=== PATIENT | female | born 1970 | race Caucasian/White ===

== ENCOUNTER → 2016-07-18 | Outpatient (CLI) | payer OTHER ==
[~2016-07-18] MED LIST: ANAPROX DS550 MG PO; AUGMENTIN 875 M1 TAB PO; CIPRODEX 0.3%-7.5 ML OT; CLARITIN10 MG PO; COMBIVENT1 ARO IH; DAYPRO600 M1 PO; DICYCLOMINE HCL10 MG PO; FLEXERIL5 MG PO; FLUVOXAMINE MA100 MG PO; MEDROL DOSEPAK4 MG PO; Motrin,Rufen800 MG PO; NORFLEX100 MG PO; PREDNISONE20 MG PO; PRILOSEC20 M2 PO; RESTORIL15 MG PO; ROBAXIN750 MG PO; SOMA PO; TRAMADOL HCL50 MG PO; VIBRAMYCIN100 MG PO; VICODIN ES 7501 TAB PO; Wellbutrin Sr100 MG PO; XANAX1 MG PO; ZITHROMAX Z PA250 MG PO; ZOLOFT25 MG PO
== END | disposition home or self-care (01) ==
LOC: US 02:56
DX: R59.0 Localized enlarged lymph nodes (principal)

== ENCOUNTER → 2016-10-23 | Outpatient (CLI) | payer OTHER ==
[~2016-10-23] MED LIST changes: +ALLEGRA-D 60 MG1 TE1 PO; +PEPCID20 MG PO
== END | disposition home or self-care (01) ==
LOC: US 05:57
DX: K76.0 Fatty (change of) liver, not elsewhere classified (principal); R10.84 Generalized abdominal pain

== ENCOUNTER → 2016-11-01 | Day surgery (SDC) | payer OTHER ==
[~2016-11-01] VITALS: Ht 160 cm; Wt 65.8 kg
[2016-11-01 08:59] VITALS: BP 109/71
[2016-11-01 09:24] VITALS: BP 111/70
[2016-11-01 09:39] VITALS: BP 113/77
[2016-11-01 09:54] VITALS: BP 109/69
== END | disposition home or self-care (01) ==
LOC: SDC 10-27 09:30
DX: K29.50 Unspecified chronic gastritis without bleeding (principal); K63.5 Polyp of colon; R19.4 Change in bowel habit; K21.9 Gastro-esophageal reflux disease without esophagitis; F41.9 Anxiety disorder, unspecified; F32.9 Major depressive disorder, single episode, unspecified; F17.210 Nicotine dependence, cigarettes, uncomplicated; Z82.49 Family history of ischemic heart disease and other diseases of the circulatory system; Z88.8 Allergy status to other drugs, medicaments and biological substances

== ENCOUNTER 2016-12-14 12:13 | Emergency (ER) | payer OTHER ==
[~2016-12-14] VITALS: Ht 160 cm; Wt 66.7 kg
[2016-12-14 12:20] VITALS: BP 109/71
[2016-12-14 14:31] LABS: BASO % 0.5 % (0.0-1.0); EOS # 0.1 10*3/uL (0.0-0.4); EOS % 2.2 % (1.0-4.0); HEMATOCRIT 43.4 % (37.0-47.0); HEMOGLOBIN 14.3 g/dl (12.0-16.0); LYMPH % 16.4 % (27.0-41.0); MEAN CELL VOLUME 91.8 fl (81.0-99.0); MEAN CORPUSCULAR HGB 30.2 pg (27.0-31.0); MEAN CORPUSCULAR HGB CONC 32.9 g/dl (33.0-37.0); MEAN PLATELET VOLUME 9.5 fl (9.6-12.3); MONO # 0.4 10*3/uL (0.1-1.0); MONO % 7.3 % (3.0-9.0); NEUT # 4.4 10*3/uL (2.3-7.9); NEUT % 73.3 % (47.0-73.0); PLATELET COUNT AUTOMATED 195 10*3/uL (130-400); RED BLOOD COUNT 4.73 10*6/uL (4.10-5.10); RED CELL DISTRI WIDTH 13.3 % (0-14.5)
[2016-12-14] MEDS ORDERED: Motrin,Rufen800 MG PO (14:57)
== END 2016-12-14 18:28 | disposition home or self-care (01) ==
LOC: ED 12:13
PROVIDERS: Internal Medicine
DX: N64.4 Mastodynia (principal); F17.200 Nicotine dependence, unspecified, uncomplicated; Z79.899 Other long term (current) drug therapy

== ENCOUNTER → 2016-12-20 | Outpatient (CLI) | payer OTHER | END | disposition home or self-care (01) | LOC: MAMMO 03:00 | DX: N63 Unspecified lump in breast (principal) ==

== ENCOUNTER 2017-02-28 21:14 | Inpatient (IN) | payer OTHER ==
[~2017-02-28] VITALS: Ht 160 cm; Wt 70.8 kg
[2017-02-28] VITALS (8 sets, daily range): BP systolic 110–142; BP diastolic 68–84
--- NOTE | ~2017-02-28 | ST ---
[place], [place] EXERCISE STRESS TEST REPORT NAME: WADE HAMEED UNIT #: [id number] ROOM: [facility] DOCTOR: ANA SERRANO [facility],[place] BIRTHDATE: [birth year] DOS: 02/28/2017 The patient received Lexiscan 0.4 mg over 10 seconds. Heart rate is 105. Ischemic changes in the inferior and lateral leads with chest pain and ST depression appears to be more than 1 mm. An underlying myocardial ischemia in the inferior leads may be considered. Myocardial perfusion scan to follow. No complications noted. The patient has associated symptoms. SHARAN PEREZ MD CM:STRESS:EXERCISE STRESS TEST REPORT [id number] KIARRA COOK MD [facility]
--- NOTE | ~2017-02-28 | EKG ---
[place], [place] ELECTROCARDIOGRAM REPORT NAME: WADE HAMEED UNIT #: [id number] ROOM: [facility] DOCTOR: ANA SERRANO [facility],[place] BIRTHDATE: [birth year] DOS: 02/28/2017 ELECTROCARDIOGRAM REPORT TIME: 2121 HOURS. CONCLUSION: 1. Sinus rhythm. 2. Poor R-wave progression. 3. Nonspecific ST changes. No acute changes noted. SHARAN PEREZ MD CM:EKGRPT:ELECTROCARDIOGRAM REPORT 1320 1335 SHARAN PEREZ MD [facility]
--- NOTE | ~2017-02-28 | EKG ---
[place], [place] ELECTROCARDIOGRAM REPORT NAME: WADE HAMEED UNIT #: [id number] ROOM: [facility] DOCTOR: ANA SERRANO [facility] BIRTHDATE: [birth year] DOS: 02/28/2017 ELECTROCARDIOGRAM REPORT TIME: 2149 HOURS. CONCLUSION: 1. Sinus rhythm. 2. Poor R-wave progression. 3. Nonspecific ST changes. No acute changes noted. SHARAN PEREZ MD CM:EKGRPT:ELECTROCARDIOGRAM REPORT 1320 1338 SHARAN PEREZ MD [facility]
--- NOTE | ~2017-02-28 | CON ---
[place], [place] REPORT OF CONSULTATION NAME: WADE HAMEED UNIT #: [id number] ROOM: 505 DOCTOR: ANA SERRANO [facility],[place] BIRTHDATE: [birth year] DOS: 03/01/2017 HISTORY OF PRESENT ILLNESS: I talked to the patient, explained and discussed at length, and the patient came in with history of pericardial chest pain radiating to the neck and arms and the patient's symptoms are progressing for the last several days. The patient has strong family of heart disease. Mother with heart disease. Several aunts and uncles and other relatives have history of heart disease below the age of 50s and 60s. The patient is still smoking more than a pack a day for quite sometime, history of hypertension, and the patient's mother has history of diabetes. The patient is not established diabetic. No syncope or presyncope and no orthopnea. PHYSICAL EXAMINATION: GENERAL: Stable, alert, not in any acute distress. VITAL SIGNS: Blood pressure 102/62-112/76, heart rate is 70. SKIN: Warm, not diaphoretic. NECK: Supple. No jugular venous distention noted. No carotid bruits were heard. LUNGS: No rales heard. HEART: S1, S2 regular. No gallops. ABDOMEN: Soft. Non tender. EXTREMITIES: Peripheral pulses, good. DIAGNOSTIC STUDIES: EKG: Sinus rhythm. No acute changes noted. Stress electrocardiogram: Abnormal indicating myocardial ischemia in the inferior leads. Myocardial perfusion scan to follow. I will review the echocardiogram. SHARAN PEREZ MD CM:CONSTR:REPORT OF CONSULTATION 1338 03/05/17 0709 interface
--- NOTE | 2017-02-28 21:18 | NUR ---
EKG DONE AT BEDSIDE BY RN AND PASSEED ON TO MD.
[2017-02-28 21:37] LABS: BASO % 0.2 % (0.0-1.0); EOS % 0.2 % (1.0-4.0); HEMATOCRIT 37.5 % (37.0-47.0); HEMOGLOBIN 12.8 g/dl (12.0-16.0); LYMPH # 1.1 10*3/uL (1.3-4.4); LYMPH % 12.3 % (27.0-41.0); MEAN CELL VOLUME 88.2 fl (81.0-99.0); MEAN CORPUSCULAR HGB 30.1 pg (27.0-31.0); MEAN CORPUSCULAR HGB CONC 34.1 g/dl (33.0-37.0); MEAN PLATELET VOLUME 9.9 fl (9.6-12.3); MONO # 0.7 10*3/uL (0.1-1.0); MONO % 7.5 % (3.0-9.0); NEUT # 6.8 10*3/uL (2.3-7.9); NEUT % 79.5 % (47.0-73.0); PLATELET COUNT AUTOMATED 230 10*3/uL (130-400); RED BLOOD COUNT 4.25 10*6/uL (4.10-5.10); RED CELL DISTRI WIDTH 13.2 % (0-14.5); WHITE BLOOD COUNT 8.6 10*3/uL (4.8-10.8)
[2017-02-28 21:52] LABS: ACT PARTIAL THROMBO TIME 23.5 SECONDS (20.8-31.5)
[2017-02-28 21:55] LABS: ALBUMIN 4.3 gm/dl (3.1-4.5); ALKALINE PHOSPHATASE 82 U/L (45-117); BUN 18 mg/dl (7-24); CHLORIDE 102 mmol/L (98-107); CREATININE 1.04 mg/dL (0.55-1.02); POTASSIUM 4.2 mmol/L (3.5-5.1); SGOT/AST 23 IU/L (3-35); SGPT/ALT 33 U/L (12-78); SODIUM 139 mmol/L (136-145); TOTAL PROTEIN 7.9 gm/dL (6.4-8.2)
[2017-02-28 21:57] LABS: TROPONIN I < 0.015 ng/ml (<0.045)
--- NOTE | 2017-02-28 22:34 | NUR ---
PATIENT REPORTS SOME RELIEF FROM HER CHEST PAIN BUT REPORTS IT IS STILL PRESENT, PATIENT REPORTS THAT HER ANXIETY HAS EASED SOME BUT SHE HAS A REALLY BAD HEADACHE AT THIS TIME. DR. MENDENHALL NOTIFIED.
--- NOTE | 2017-02-28 23:10 | NUR ---
A 46, admitted to 5E, under the services of KIARAR Gore DO with a diagnosis of CHEST PAIN OF UNCERTAIN ETIOLOGY. Chief complaint is CHEST PAIN\. Patient arrived via bed from ER. Monitor applied. Initial assessment completed. Vital signs taken and recorded. KIARRA GORE DO notified of admission to the unit. Orders received. See assessment for past medical history, medications and allergies. Patient and/or family oriented to unit. visitation policy reviewed. Clothing/patient valuable form completed. SUSAN CONNER
--- NOTE | 2017-02-28 23:45 | NUR ---
DR. FOSTER NOTIFIED OF PATIENT'S MED REQ BEING UP TO DATE.
--- NOTE | 2017-02-28 23:57 | NUR ---
PATIENT MEDICATED WITH MOTRIN 800MG AND TYLENOL 650MG FOR COMPLAINTS OF A HEADACHE. DR. MARTINEZ IN TO SEE PATIENT. WILL CONTINUE TO MONITOR. CALL LIGHT IN REACH.
--- NOTE | 2017-03-01 01:30 | NUR ---
MOTRIN AND TYLENOL EFFECTIVE. PATIENT STATED HEADACHE IS GONE. CALL LIGHT IN REACH.
[2017-03-01 03:35] LABS: BASO % 0.3 % (0.0-1.0); EOS % 0.6 % (1.0-4.0); HEMATOCRIT 33.2 % (37.0-47.0); HEMOGLOBIN 11.2 g/dl (12.0-16.0); LYMPH # 1.2 10*3/uL (1.3-4.4); LYMPH % 18.4 % (27.0-41.0); MEAN CORPUSCULAR HGB CONC 33.7 g/dl (33.0-37.0); MEAN PLATELET VOLUME 9.1 fl (9.6-12.3); MONO # 0.5 10*3/uL (0.1-1.0); MONO % 7.8 % (3.0-9.0); NEUT # 4.8 10*3/uL (2.3-7.9); NEUT % 72.3 % (47.0-73.0); PLATELET COUNT AUTOMATED 182 10*3/uL (130-400); RED BLOOD COUNT 3.73 10*6/uL (4.10-5.10); RED CELL DISTRI WIDTH 13.2 % (0-14.5); WHITE BLOOD COUNT 6.6 10*3/uL (4.8-10.8)
--- NOTE | 2017-03-01 03:42 | NUR ---
DR. PEREZ NOTIFIED OF CONSULT WITH NEW ORDERS NOTED.
[2017-03-01 03:51] LABS: BUN 21 mg/dl (7-24); CHLORIDE 106 mmol/L (98-107); CREATININE 0.94 mg/dL (0.55-1.02); HDL CHOLESTEROL 87 mg/dl (40-60); PHOSPHOROUS 3.6 mg/dL (2.5-4.9); POTASSIUM 3.6 mmol/L (3.5-5.1); SODIUM 139 mmol/L (136-145); TRIGLYCERIDES 29 mg/dl (<150); VLDL CHOLESTEROL 6 mg/dL (6-40)
[2017-03-01 03:52] LABS: CHOLESTEROL 169 mg/dL (<200); LDL CHOLESTEROL 76 mg/dL (9-159)
[2017-03-01 03:58] LABS: THYROID STIM HORMONE (HS) 0.717 uIU/ml (0.358-4.75)
[2017-03-01 04:49] LABS: CKMB 1.1 ng/ml (0.5-3.6)
[2017-03-01 07:41] LABS: VITAMIN D, 25-HYDROXY 42.8 ng/mL (30-100)
[2017-03-01 08:00] VITALS: BP 120/68
[2017-03-01] MEDS ORDERED: CLINDAMYCIN HC300 MG PO (08:20)
--- NOTE | 2017-03-01 09:00 | NUR ---
Medical Assistant Instructor in to talk to patient. Patient states lives at home with boyfriend. There are few steps in the home. Physician: santino garcia [facility]: [facility] Home health services: none Patient's level of ADLs: INDEPENDENT Patient has working utilities: all working DME: none Follow-up physician's appointment after d/c: will be made by hospitalist nurse director upon discharge Does patient want to access PORTAL?: no Discharge plan discussed with patient, patient lives at home, was in this area visiting her children when she got sick, she is independent in adls and ambulation, patient states she will be returning home when able and denies any home needs. AMIRA MAGDALENO
[2017-03-01 12:11] LABS: CKMB 0.9 ng/ml (0.5-3.6)
--- NOTE | 2017-03-01 13:15 | NUR ---
INFORMED CONSENT OBTAINED FOR LEXISCAN NUCLEAR STRESS TEST WITH DR. PEREZ. RESTING EKG NSR WITH A RESTING HR OF 70 AND BP OF 112/76. LUNGS CLEAR WITH SPO2 OF 99% ON ROOM AIR. PT COMPLETED A 1:00 LEXISCAN PROTOCOL RECEIVING LEXISCAN 0.4 MG IV OVER 10 SECONDS. HAD A PEAK HR OF 105 WITH BP OF 102/62. DID C/O "CHEST HEAVINESS" THAT SUBSIDED IN RECOVERY. DEVELOPED NONDIAGNOSTIC ST DEPRESSION IN LEAD II,III, AND AVF. LAST RECOVERY HR OF 96 WITH BP OF 102/52. AWAITING SCANNING IN STABLE CONDITION.
[2017-03-01 16:00] VITALS: BP 112/68
--- NOTE | 2017-03-01 18:49 | NUR ---
CALLED DR MYERS ASKIMG FOR SOMETHING FOR PAIN. DR MYERS WILL PUT SOMETHING IN FOR PATIENT
[2017-03-01 20:00] VITALS: BP 117/66
--- NOTE | 2017-03-01 21:57 | NUR ---
PATIENT MEDICATED WITH XANAX, TORDOL AND RESTORIL PER PRN ORDER ANABELA C/O PAIN,ANXIETY, AND INABILITY TO SLEEP . SEE EMAR. REINFORCED USE OF CALL LIGHT
[2017-03-02] VITALS: BP 102/67
[2017-03-02 08:00] VITALS: BP 92/66
--- NOTE | 2017-03-02 08:52 | NUR ---
case management visits with patient, patient denies any home needs at this time
--- NOTE | 2017-03-02 09:09 | NUR ---
PT EXTREMELY AGITATED, BEHAVIOR INAPPROPRIATE, CURSING. EMOTIONAL SUPPORT PROVIDED. XANAX 1 MG GIVEN FOR C/O ANXIETY. PT STATES AT THIS TIME THAT HER "MEDS ARE NOT RIGHT". UPON FURTHER INSPECTION I NOTICED THAT SHE HAD NOT BEEN RECIEVING HER SOMA AND SHE HAD ONLY BEEN RECIEVEING 100MG FLUOXAMINE FOR HER "BIPOLAR DISORDER AND HER OCD". PT DOES APPEAR DISHEVELED AND TEARFUL. RAPID SPEECH ,ALMOST TO THE POINT YOU CAN'T UNDERSTAND HER.EMOTIONAL SUPPORT PROVIDED. PT APPEARED TO CALM DOWN A BIT. I EXPLAINED TO HER WE WOULD FIGURE THIS OUT. VOICES NO OTHER NEEDS AT THIS TIME. CALL LIGHT IN REACH. PT FATHER AT [facility].
--- NOTE | 2017-03-02 09:31 | NUR ---
SPOKE TO BACK FACER TO DR Selma PEREZ, DR PEREZ IN DISPOSED AT THE MOMENT AND WILL RETURN MY CALL. DR Rosalina MORELAND REQUESTED I SPEAK TO HIM REGARDING ECHO NOT DONE AND TO ASK IF HE SEEN ANTONYAN. WILL F/U IF NO CALL BACK RECIEVED IN 1 HOUR.
--- NOTE | 2017-03-02 09:36 | NUR ---
MADE F/U APPT FOR PT AT [facility] 03/12/17 @ 1:[address] Selma PEREZ.
--- NOTE | 2017-03-02 10:01 | NUR ---
SPOKE TO DR Selma PEREZ AND HE LEFT CELL NUMBER FOR DR MORELAND TO SPEAK TO HIM.
[2017-03-02] MEDS ORDERED: LEVAQUIN500 M2 PO (10:08)
[2017-03-02] MEDS ORDERED: PREDNISONE10 MG PO (10:08)
--- NOTE | 2017-03-02 11:21 | NUR ---
Discharge instructions reviewed with patient/family. Patient receptive and verbalizes understanding. Follow-up care arranged. Written instructions given to patient/family.TELEMETRY ACCOUNTED FOR. ESTEFANY ECKERT
== END 2017-03-02 11:21 | disposition home or self-care (01) | DRG 880 ==
LOC: ED 21:14 → EDHOLD 22:38 → 5E 22:38
PROVIDERS: Emergency Medicine Emergency Medical Services; Internal Medicine; Internal Medicine Cardiovascular Disease; ADMIT Internal Medicine
PROC: 4A02XM4 Measurement of Cardiac Total Activity, External Approach (ICD-10-PCS; principal; 2017-03-01)
PROC: 3E073KZ Introduction of Other Diagnostic Substance into Coronary Artery, Percutaneous Approach (ICD-10-PCS; 2017-03-01)
DX: F41.9 Anxiety disorder, unspecified (principal); E83.41 Hypermagnesemia; R07.89 Other chest pain; D72.810 Lymphocytopenia; F17.210 Nicotine dependence, cigarettes, uncomplicated; K21.9 Gastro-esophageal reflux disease without esophagitis; G47.00 Insomnia, unspecified; J30.2 Other seasonal allergic rhinitis; J44.9 Chronic obstructive pulmonary disease, unspecified; R73.9 Hyperglycemia, unspecified; F32.9 Major depressive disorder, single episode, unspecified; E78.00 Pure hypercholesterolemia, unspecified; J01.00 Acute maxillary sinusitis, unspecified; Z71.6 Tobacco abuse counseling; Z79.899 Other long term (current) drug therapy; Z88.8 Allergy status to other drugs, medicaments and biological substances; Z80.8 Family history of malignant neoplasm of other organs or systems; Z83.3 Family history of diabetes mellitus; Z82.49 Family history of ischemic heart disease and other diseases of the circulatory system

== ENCOUNTER → 2017-10-13 | Outpatient (CLI) | payer MEDICARE, MEDICAID ==
[~2017-10-13] MED LIST changes: +CLINDAMYCIN HC300 MG PO; +LEVAQUIN500 M2 PO; +PREDNISONE10 MG PO
[2017-10-13 11:05] LABS: CREATININE 1.19 mg/dL (0.55-1.02); POTASSIUM 4.6 mmol/L (3.5-5.1)
== END ==
LOC: LAB 09:41
PROVIDERS: Internal Medicine Cardiovascular Disease
DX: R07.9 Chest pain, unspecified (principal); Z82.49 Family history of ischemic heart disease and other diseases of the circulatory system; Z72.0 Tobacco use

== ENCOUNTER → 2019-05-15 | Outpatient (CLI) | payer OTHER, MEDICAID | END | disposition home or self-care (01) | LOC: US 12:49 | DX: Z12.31 Encounter for screening mammogram for malignant neoplasm of breast (principal); N95.0 Postmenopausal bleeding ==

== ENCOUNTER → 2019-10-23 | Outpatient (CLI) | payer OTHER, MEDICAID | END | disposition home or self-care (01) | LOC: CARD 14:27 | DX: I07.1 Rheumatic tricuspid insufficiency (principal); F41.9 Anxiety disorder, unspecified; R07.89 Other chest pain; R06.81 Apnea, not elsewhere classified; Z72.0 Tobacco use ==

== ENCOUNTER → 2020-08-30 | Outpatient (CLI) | payer OTHER, MEDICAID | END | disposition home or self-care (01) | LOC: MAMMO 00:07 | PROVIDERS: ATTEND Obstetrics & Gynecology | DX: Z12.31 Encounter for screening mammogram for malignant neoplasm of breast (principal) ==

== ENCOUNTER 2020-09-25 11:47 | Inpatient (IN) | payer OTHER, MEDICAID ==
[~2020-09-25] VITALS: Ht 160 cm; Wt 80.7 kg
[2020-09-25 11:55] VITALS: BP 134/80
[2020-09-25 12:30] LABS: BASO % 0.5 % (0.0-1.0); EOS # 0.1 10*3/uL (0.0-0.4); EOS % 2.3 % (1.0-4.0); HEMATOCRIT 44.9 % (37.0-47.0); LYMPH # 0.8 10*3/uL (1.3-4.4); LYMPH % 14.2 % (27.0-41.0); MEAN CELL VOLUME 90.3 fl (81.0-99.0); MEAN CORPUSCULAR HGB CONC 33.2 g/dl (33.0-37.0); MEAN PLATELET VOLUME 9.9 fl (9.6-12.3); MONO # 0.4 10*3/uL (0.1-1.0); MONO % 6.8 % (3.0-9.0); NEUT # 4.4 10*3/uL (2.3-7.9); NEUT % 75.9 % (47.0-73.0); PLATELET COUNT AUTOMATED 210 10*3/uL (130-400); RED BLOOD COUNT 4.97 10*6/uL (4.10-5.10); RED CELL DISTRI WIDTH 13.4 % (0-14.5); WHITE BLOOD COUNT 5.8 10*3/uL (4.8-10.8)
[2020-09-25 12:44] LABS: ALBUMIN 3.8 gm/dl (3.1-4.5); ALKALINE PHOSPHATASE 100 U/L (45-117); BUN 11 mg/dl (7-24); CHLORIDE 107 mmol/L (98-107); CREATININE 0.98 mg/dL (0.55-1.02); LIPASE 106 U/L (73-393); SGOT/AST 53 IU/L (3-35); SGPT/ALT 81 U/L (12-78); SODIUM 135 mmol/L (136-145); TOTAL PROTEIN 8.2 gm/dL (6.4-8.2)
[2020-09-25 13:10] LABS: BILIRUBIN Negative (Negative); BLOOD 1+ (Negative); CLARITY Clear (Clear); COLOR Dark Yellow (Yellow); GLUCOSE Negative (Negative); KETONE Trace (Negative); LEUKO ESTERASE Negative (Negative); NITRITE Negative (Negative); PH 5.5 (4.5-8.0)
[2020-09-25 13:20] LABS: BACTERIA 1+; MUCOUS 2+; WBC 0-2 wbc/hpf (0-5)
[2020-09-25] MEDS ORDERED: PANTOPRAZOLE SO40 MG PO (20:43)
[2020-09-25] MEDS ORDERED: GOOD NEIGHBOR L10 MG PO (20:44)
[2020-09-26 02:28] VITALS: BP 130/75
[2020-09-26 05:19] LABS: ALBUMIN 3.3 gm/dl (3.1-4.5); BUN 14 mg/dl (7-24); CHLORIDE 108 mmol/L (98-107); CHOLESTEROL 182 mg/dL (<200); CREATININE 0.91 mg/dL (0.55-1.02); POTASSIUM 3.6 mmol/L (3.5-5.1); SGOT/AST 50 IU/L (3-35); SGPT/ALT 68 U/L (12-78); SODIUM 136 mmol/L (136-145); TOTAL PROTEIN 7.2 gm/dL (6.4-8.2); TRIGLYCERIDES 103 mg/dl (<150)
[2020-09-26 05:20] LABS: ALKALINE PHOSPHATASE 82 U/L (45-117); LDL CHOLESTEROL 112 mg/dL (9-159)
[2020-09-26 05:26] LABS: FREE T4 1.07 ng/dl (0.76-1.46)
[2020-09-26 06:11] LABS: BASO % 0.6 % (0.0-1.0); EOS # 0.2 10*3/uL (0.0-0.4); EOS % 4.1 % (1.0-4.0); HEMATOCRIT 40.3 % (37.0-47.0); LYMPH # 0.8 10*3/uL (1.3-4.4); LYMPH % 17.4 % (27.0-41.0); MEAN CELL VOLUME 91.6 fl (81.0-99.0); MEAN CORPUSCULAR HGB 29.5 pg (27.0-31.0); MEAN CORPUSCULAR HGB CONC 32.3 g/dl (33.0-37.0); MEAN PLATELET VOLUME 10.7 fl (9.6-12.3); MONO # 0.4 10*3/uL (0.1-1.0); MONO % 7.7 % (3.0-9.0); NEUT # 3.2 10*3/uL (2.3-7.9); NEUT % 69.6 % (47.0-73.0); PLATELET COUNT AUTOMATED 186 10*3/uL (130-400); RED CELL DISTRI WIDTH 13.4 % (0-14.5); WHITE BLOOD COUNT 4.7 10*3/uL (4.8-10.8)
[2020-09-26 06:21] LABS: ACT PARTIAL THROMBO TIME 27.6 SECONDS (20.0-32.1)
[2020-09-26 08:30] VITALS: BP 132/70
[2020-09-26 17:56] VITALS: BP 129/83
[2020-09-26 20:00] VITALS: BP 135/81
[2020-09-27] VITALS: BP 130/88
[2020-09-27 08:00] VITALS: BP 135/88
[2020-09-27 12:00] VITALS: BP 146/71
[2020-09-27 16:00] VITALS: BP 117/60
[2020-09-27 20:00] VITALS: BP 137/72
[2020-09-28] VITALS: BP 117/87
[2020-09-28 06:21] LABS: BASO % 0.7 % (0.0-1.0); EOS # 0.2 10*3/uL (0.0-0.4); EOS % 3.9 % (1.0-4.0); HEMATOCRIT 39.4 % (37.0-47.0); MEAN CELL VOLUME 92.3 fl (81.0-99.0); MEAN CORPUSCULAR HGB 29.7 pg (27.0-31.0); MEAN CORPUSCULAR HGB CONC 32.2 g/dl (33.0-37.0); MEAN PLATELET VOLUME 10.6 fl (9.6-12.3); MONO # 0.4 10*3/uL (0.1-1.0); MONO % 8.7 % (3.0-9.0); NEUT # 2.8 10*3/uL (2.3-7.9); NEUT % 64.5 % (47.0-73.0); PLATELET COUNT AUTOMATED 185 10*3/uL (130-400); RED BLOOD COUNT 4.27 10*6/uL (4.10-5.10); RED CELL DISTRI WIDTH 13.5 % (0-14.5); WHITE BLOOD COUNT 4.4 10*3/uL (4.8-10.8)
[2020-09-28 06:24] LABS: ALBUMIN 3.5 gm/dl (3.1-4.5); BUN 17 mg/dl (7-24); CHLORIDE 109 mmol/L (98-107); CREATININE 0.78 mg/dL (0.55-1.02); POTASSIUM 4.3 mmol/L (3.5-5.1); SGOT/AST 48 IU/L (3-35); SGPT/ALT 68 U/L (12-78); SODIUM 140 mmol/L (136-145)
[2020-09-28 06:26] LABS: ALKALINE PHOSPHATASE 83 U/L (45-117); TOTAL PROTEIN 6.9 gm/dL (6.4-8.2)
[2020-09-28 08:00] VITALS: BP 128/65
[2020-09-28 12:00] VITALS: BP 144/69
[2020-09-28 16:00] VITALS: BP 117/65
[2020-09-28 20:00] VITALS: BP 152/69
[2020-09-29] VITALS (7 sets, daily range): BP systolic 121–169; BP diastolic 72–101
[2020-09-30] VITALS: BP 129/84
[2020-09-30 08:00] VITALS: BP 108/59
[2020-09-30] MEDS ORDERED: FLAGYL500 MG PO (11:39)
[2020-09-30] MEDS ORDERED: CIPRO500 MG PO (11:39)
[2020-09-30] MEDS ORDERED: Carafate1 GM PO (11:40)
[2020-09-30] MEDS ORDERED: PANTOPRAZOLE SO40 MG PO (11:42)
== END 2020-09-30 13:03 | disposition home or self-care (01) | DRG 392 ==
LOC: ED → EDHOLD 19:29 → 4E 19:29 → EDHOLD 19:29 → 4E 09-26 17:08
PROVIDERS: Hospitalist; Physician Assistant; Registered Nurse; ADMIT Family Medicine; ATTEND Family Medicine
PROC: 0DB78ZX Excision of Stomach, Pylorus, Via Natural or Artificial Opening Endoscopic, Diagnostic (ICD-10-PCS; principal; 2020-09-29)
PROC: 0DBP8ZX Excision of Rectum, Via Natural or Artificial Opening Endoscopic, Diagnostic (ICD-10-PCS; 2020-09-29)
DX: K29.70 Gastritis, unspecified, without bleeding (principal); K58.0 Irritable bowel syndrome with diarrhea; D25.9 Leiomyoma of uterus, unspecified; J30.2 Other seasonal allergic rhinitis; R74.01 Elevation of levels of liver transaminase levels; F32.9 Major depressive disorder, single episode, unspecified; R79.82 Elevated C-reactive protein (CRP); K21.9 Gastro-esophageal reflux disease without esophagitis; F42.9 Obsessive-compulsive disorder, unspecified; F17.210 Nicotine dependence, cigarettes, uncomplicated; F41.9 Anxiety disorder, unspecified; F43.10 Post-traumatic stress disorder, unspecified; K57.30 Diverticulosis of large intestine without perforation or abscess without bleeding; K62.1 Rectal polyp; K76.0 Fatty (change of) liver, not elsewhere classified; E55.9 Vitamin D deficiency, unspecified; Z71.6 Tobacco abuse counseling; Z88.8 Allergy status to other drugs, medicaments and biological substances; Z98.51 Tubal ligation status; Z80.8 Family history of malignant neoplasm of other organs or systems; Z82.49 Family history of ischemic heart disease and other diseases of the circulatory system; Z83.3 Family history of diabetes mellitus; Z79.899 Other long term (current) drug therapy

== ENCOUNTER → 2021-10-06 | Outpatient (CLI) | payer OTHER, MEDICAID ==
[~2021-10-06] MED LIST changes: +CIPRO500 MG PO; +Carafate1 GM PO; +FLAGYL500 MG PO; +GOOD NEIGHBOR L10 MG PO; +PANTOPRAZOLE SO40 MG PO
== END | disposition home or self-care (01) ==
LOC: MAMMO 10:25
PROVIDERS: ATTEND Obstetrics & Gynecology
DX: Z12.31 Encounter for screening mammogram for malignant neoplasm of breast (principal)

== ENCOUNTER → 2023-08-01 | Outpatient (CLI) | payer OTHER, MEDICAID | END | disposition home or self-care (01) | LOC: CT 00:11 | PROVIDERS: ATTEND Nurse Practitioner Family | DX: Z12.2 Encounter for screening for malignant neoplasm of respiratory organs (principal); R91.8 Other nonspecific abnormal finding of lung field; F17.210 Nicotine dependence, cigarettes, uncomplicated; I25.10 Atherosclerotic heart disease of native coronary artery without angina pectoris ==

== ENCOUNTER → 2023-09-20 | Outpatient (CLI) | payer OTHER, MEDICAID | END | disposition home or self-care (01) | LOC: MAMMO 01:38 | PROVIDERS: ATTEND Obstetrics & Gynecology | DX: Z12.31 Encounter for screening mammogram for malignant neoplasm of breast (principal); N64.89 Other specified disorders of breast; R92.333 Mammographic heterogeneous density, bilateral breasts ==

== ENCOUNTER 2024-04-13 09:32 | Inpatient (IN) | payer OTHER, MEDICAID ==
[~2024-04-13] VITALS: Ht 160 cm; Wt 77.6 kg
[2024-04-13 09:42] VITALS: BP 121/81
[2024-04-13] MEDS ORDERED: IOHEXOL 300 MG/ML 100 ML VIAL IV ONE (10:00)
[2024-04-13 10:16] LABS: BASO % 0.4 % (0.0-1.0); EOS # 0.1 10*3/uL (0.0-0.4); EOS % 1.3 % (1.0-4.0); MEAN CELL VOLUME 93.3 fl (81.0-99.0); MEAN CORPUSCULAR HGB 30.6 pg (27.0-31.0); MEAN CORPUSCULAR HGB CONC 32.8 g/dl (33.0-37.0); MONO # 0.6 10*3/uL (0.1-1.0); MONO % 8.1 % (3.0-9.0); NEUT # 6.3 10*3/uL (2.3-7.9); NEUT % 79.8 % (47.0-73.0); PLATELET COUNT AUTOMATED 187 10*3/uL (130-400); RED BLOOD COUNT 4.18 10*6/uL (4.10-5.10); RED CELL DISTRI WIDTH 13.3 % (0-14.5); WHITE BLOOD COUNT 7.9 10*3/uL (4.8-10.8)
[2024-04-13] MEDS ORDERED: MORPHINE Sulfate 2 MG/ML SYR IV ONE (10:20)
[2024-04-13] MEDS ORDERED: Ondansetron Hydrochloride 4 MG/2 ML VIAL IV ONE (10:25)
[2024-04-13 10:33] LABS: ALKALINE PHOSPHATASE 98 U/L (46-116); BUN 12 mg/dl (9-23); CHLORIDE 101 mmol/L (98-107); LIPASE 32 U/L (12-53); POTASSIUM 3.6 mmol/L (3.4-5.1); SGPT/ALT 24 U/L (5-49); TOTAL PROTEIN 7.9 gm/dL (6.0-8.0)
[2024-04-13 11:23] LABS: BILIRUBIN 2+ (Negative); BLOOD 3+ (Negative); CLARITY Cloudy (Clear); COLOR Orange (Yellow); GLUCOSE Negative (Negative); KETONE 1+ (Negative); LEUKO ESTERASE Trace (Negative); NITRITE Negative (Negative); PH 5.5 (4.5-8.0); SPECIFIC GRAVITY >= 1.030 (1.001-1.030)
[2024-04-13 11:31] LABS: BACTERIA 3+; EPITHELIAL CELLS 21-30; MUCOUS 1+
[2024-04-13] MEDS ORDERED: Piperacillin Sodium/Tazobact 100 ML IV ONE (11:50)
[2024-04-13] MEDS ORDERED: Vancomycin Hydrochloride 250 ML IV ONE (11:50)
[2024-04-13] MEDS ORDERED: SODIUM CHLORIDE 0.9% 1,000 ML IV SCH (12:30)
[2024-04-13] MEDS ORDERED: Ondansetron Hydrochloride 4 MG/2 ML VIAL IV PRN (13:50)
[2024-04-13] MEDS ORDERED: ACETAMINOPHEN 325 MG TAB PO PRN (13:50)
[2024-04-13] MEDS ORDERED: Acetaminophen/Hydrocodone 5 MG/325 MG TABLET PO PRN (13:50)
[2024-04-13] MEDS ORDERED: BISACODYL 5 MG TAB PO PRN (13:50)
[2024-04-13] MEDS ORDERED: ALPRAZolam 0.5 MG TAB PO PRN (14:05)
[2024-04-13 14:09] VITALS: BP 121/59
[2024-04-13] MEDS ORDERED: SUCRALFATE 1 GM TAB PO SCH (16:30)
[2024-04-13 17:00] VITALS: BP 97/49
[2024-04-13] MEDS ORDERED: FAMOTIDINE20 M1 PO (17:40)
[2024-04-13] MEDS ORDERED: Piperacillin Sodium/Tazobact 50 ML IV SCH (18:00)
[2024-04-13 18:49] VITALS: BP 143/80
[2024-04-13] MEDS ORDERED: MORPHINE Sulfate 2 MG/ML SYR IV PRN (19:15)
[2024-04-13 20:00] VITALS: BP 107/69
[2024-04-14] VITALS (8 sets, daily range): BP systolic 108–142; BP diastolic 63–78
[2024-04-14] MEDS ORDERED: VANCOMYCIN/WATER FOR INJ (PEG) 250 ML IV SCH (04:00)
[2024-04-14] MEDS ORDERED: Pantoprazole Sodium 40 MG TAB PO SCH (06:00)
[2024-04-14 06:13] LABS: BASO % 0.3 % (0.0-1.0); EOS # 0.2 10*3/uL (0.0-0.4); HEMATOCRIT 32.8 % (37.0-47.0); MEAN CELL VOLUME 94.3 fl (81.0-99.0); MEAN CORPUSCULAR HGB 30.2 pg (27.0-31.0); MEAN PLATELET VOLUME 10.1 fl (9.6-12.3); MONO # 0.6 10*3/uL (0.1-1.0); MONO % 8.6 % (3.0-9.0); NEUT # 4.7 10*3/uL (2.3-7.9); NEUT % 73.3 % (47.0-73.0); PLATELET COUNT AUTOMATED 178 10*3/uL (130-400); RED BLOOD COUNT 3.48 10*6/uL (4.10-5.10); RED CELL DISTRI WIDTH 13.2 % (0-14.5); WHITE BLOOD COUNT 6.4 10*3/uL (4.8-10.8)
[2024-04-14 06:23] LABS: ALKALINE PHOSPHATASE 85 U/L (46-116); BUN 10 mg/dl (9-23); CHLORIDE 103 mmol/L (98-107); CHOLESTEROL 149 mg/dL (<200); FREE T4 1.27 ng/dl (0.89-1.76); LDL CHOLESTEROL 89 mg/dL (9-159); POTASSIUM 3.4 mmol/L (3.4-5.1); SGPT/ALT 23 U/L (5-49); TOTAL PROTEIN 6.4 gm/dL (6.0-8.0); TRIGLYCERIDES 87 mg/dl (<150)
[2024-04-14 07:06] LABS: VITAMIN D, 25-HYDROXY 22.8 ng/mL (30-100)
[2024-04-14] MEDS ORDERED: LORATADINE 10 MG TAB PO SCH (10:00)
[2024-04-14] MEDS ORDERED: Enoxaparin Sodium 40 MG/0.4 ML SYR SC SCH (10:00)
[2024-04-14] MEDS ORDERED: Lactated Ringer's Solution 1,000 ML IV ONE (11:50)
[2024-04-14] MEDS ORDERED: ACETAMINOPHEN 100 ML IV ONE (11:50)
[2024-04-14] MEDS ORDERED: Succinylcholine Chloride 200 MG/10 ML SYRINGE IV ONE (16:25)
[2024-04-14] MEDS ORDERED: Dexamethasone Sodium Phospha 4 MG/ML VIAL IV ONE (16:25)
[2024-04-14] MEDS ORDERED: PROPOFOL 200 MG/20 ML VIAL IV ONE (16:25)
[2024-04-14] MEDS ORDERED: Lidocaine Hydrochloride 2% 5 ML SDV IV ONE (16:25)
[2024-04-14] MEDS ORDERED: fentaNYL CITRATE 100 MCG/2 ML VIAL IV ONE (16:25)
[2024-04-14] MEDS ORDERED: SEVOFLURANE 250 ML BOT INH ONE (16:25)
[2024-04-14] MEDS ORDERED: Ondansetron Hydrochloride 4 MG/2 ML VIAL IV ONE (16:25)
[2024-04-14] MEDS ORDERED: NYSTATIN CREAM 15 GM TUBE T SCH (22:00)
[2024-04-14] MEDS ORDERED: LORATADINE 10 MG TAB PO PRN (23:54)
[2024-04-15] VITALS: BP 128/80
[2024-04-15 08:00] VITALS: BP 127/76
[2024-04-15] MEDS ORDERED: CIPRO500 MG PO (10:25)
[2024-04-15] MEDS ORDERED: METRONIDAZOLE500 M1 PO (10:25)
[2024-04-15 12:00] VITALS: BP 117/69
[2024-04-15] MEDS ORDERED: HYDROCODONE-AC1 EAC1 PO (12:31)
== END 2024-04-15 14:14 | disposition home or self-care (01) | DRG 854 ==
LOC: ED 09:32 → 4E 12:28 → EDHOLD 12:28 → 4E 16:18
PROVIDERS: Internal Medicine; Registered Nurse; ADMIT Internal Medicine; ATTEND Internal Medicine
PROC: 0H99XZZ Drainage of Perineum Skin, External Approach (ICD-10-PCS; principal; 2024-04-14)
DX: A41.9 Sepsis, unspecified organism (principal); K61.1 Rectal abscess; L02.31 Cutaneous abscess of buttock; N39.0 Urinary tract infection, site not specified; L03.317 Cellulitis of buttock; F41.9 Anxiety disorder, unspecified; F32.9 Major depressive disorder, single episode, unspecified; R73.9 Hyperglycemia, unspecified; K58.9 Irritable bowel syndrome, unspecified; F42.9 Obsessive-compulsive disorder, unspecified; K21.9 Gastro-esophageal reflux disease without esophagitis; F43.10 Post-traumatic stress disorder, unspecified; Z88.8 Allergy status to other drugs, medicaments and biological substances; Z98.51 Tubal ligation status; Z82.49 Family history of ischemic heart disease and other diseases of the circulatory system; Z79.899 Other long term (current) drug therapy

== ENCOUNTER 2024-04-16 13:51 | Emergency (ER) | payer OTHER, MEDICAID ==
[~2024-04-16] VITALS: Ht 160 cm; Wt 77.1 kg
[~2024-04-16 13:51] MED LIST changes: +FAMOTIDINE20 M1 PO; +HYDROCODONE-AC1 EAC1 PO; +METRONIDAZOLE500 M1 PO
[2024-04-16 14:03] VITALS: BP 150/70
== END 2024-04-16 14:35 | disposition home or self-care (01) ==
LOC: ED 13:51
DX: K61.1 Rectal abscess (principal); Z48.01 Encounter for change or removal of surgical wound dressing; Z88.8 Allergy status to other drugs, medicaments and biological substances; Z79.899 Other long term (current) drug therapy; Z98.890 Other specified postprocedural states

== ENCOUNTER → 2024-04-21 | Outpatient (CLI) | payer OTHER, MEDICAID | END | disposition home or self-care (01) | LOC: WOUNDCARE 02:55 | PROVIDERS: ATTEND Nurse Practitioner Primary Care | DX: T81.89XA Other complications of procedures, not elsewhere classified, initial encounter (principal); L89.323 Pressure ulcer of left buttock, stage 3; K61.1 Rectal abscess; L03.317 Cellulitis of buttock; A41.9 Sepsis, unspecified organism; F41.9 Anxiety disorder, unspecified; F32.A Depression, unspecified; K21.9 Gastro-esophageal reflux disease without esophagitis; K58.9 Irritable bowel syndrome, unspecified; F42.9 Obsessive-compulsive disorder, unspecified; F17.210 Nicotine dependence, cigarettes, uncomplicated; Z98.51 Tubal ligation status; Z98.890 Other specified postprocedural states; Z79.899 Other long term (current) drug therapy; Y83.8 Other surgical procedures as the cause of abnormal reaction of the patient, or of later complication, without mention of misadventure at the time of the procedure; Y92.89 Other specified places as the place of occurrence of the external cause ==

== ENCOUNTER → 2024-05-02 | Outpatient (CLI) | payer OTHER, MEDICAID | END | disposition home or self-care (01) | LOC: WOUNDCARE 00:14 | PROVIDERS: ATTEND Nurse Practitioner Family | DX: T81.89XD Other complications of procedures, not elsewhere classified, subsequent encounter (principal); L03.317 Cellulitis of buttock; K61.1 Rectal abscess; A41.9 Sepsis, unspecified organism; K21.9 Gastro-esophageal reflux disease without esophagitis; K58.8 Other irritable bowel syndrome; G47.00 Insomnia, unspecified; F41.9 Anxiety disorder, unspecified; F32.A Depression, unspecified; F42.9 Obsessive-compulsive disorder, unspecified; F43.10 Post-traumatic stress disorder, unspecified; F17.210 Nicotine dependence, cigarettes, uncomplicated; Z98.51 Tubal ligation status; Z98.890 Other specified postprocedural states; Z79.899 Other long term (current) drug therapy; Y83.8 Other surgical procedures as the cause of abnormal reaction of the patient, or of later complication, without mention of misadventure at the time of the procedure ==

== ENCOUNTER → 2024-05-22 | Outpatient (CLI) | payer OTHER, MEDICAID | END | disposition home or self-care (01) | LOC: WOUNDCARE 04:52 | PROVIDERS: ATTEND Nurse Practitioner Family | DX: T81.89XD Other complications of procedures, not elsewhere classified, subsequent encounter (principal); L03.317 Cellulitis of buttock; A41.9 Sepsis, unspecified organism; K61.1 Rectal abscess; K21.9 Gastro-esophageal reflux disease without esophagitis; K58.9 Irritable bowel syndrome, unspecified; G47.00 Insomnia, unspecified; F32.A Depression, unspecified; F41.9 Anxiety disorder, unspecified; Z98.51 Tubal ligation status; Z98.890 Other specified postprocedural states; Z79.899 Other long term (current) drug therapy; Y83.8 Other surgical procedures as the cause of abnormal reaction of the patient, or of later complication, without mention of misadventure at the time of the procedure ==

== ENCOUNTER → 2024-06-03 | Outpatient (CLI) | payer OTHER, MEDICAID ==
[2024-06-03 10:09] LABS: HEMATOCRIT 36.4 % (37.0-47.0); MEAN CELL VOLUME 91.2 fl (81.0-99.0); MEAN CORPUSCULAR HGB 29.8 pg (27.0-31.0); MEAN CORPUSCULAR HGB CONC 32.7 g/dl (33.0-37.0); MEAN PLATELET VOLUME 10.3 fl (9.6-12.3); RED BLOOD COUNT 3.99 10*6/uL (4.10-5.10); RED CELL DISTRI WIDTH 13.2 % (0-14.5); WHITE BLOOD COUNT 3.5 10*3/uL (4.8-10.8)
[2024-06-03 10:25] LABS: ALKALINE PHOSPHATASE 57 U/L (46-116); BUN 12 mg/dl (9-23); CHLORIDE 109 mmol/L (98-107); CHOLESTEROL 186 mg/dL (<200); LDL CHOLESTEROL 103 mg/dL (9-159); POTASSIUM 4.5 mmol/L (3.4-5.1); SGPT/ALT 21 U/L (5-49); TOTAL PROTEIN 6.9 gm/dL (6.0-8.0); TRIGLYCERIDES 121 mg/dl (<150)
== END | disposition home or self-care (01) ==
LOC: LAB 09:36
PROVIDERS: ATTEND Family Medicine
DX: Z13.6 Encounter for screening for cardiovascular disorders (principal); Z12.11 Encounter for screening for malignant neoplasm of colon; R73.9 Hyperglycemia, unspecified

== ENCOUNTER → 2024-08-29 | Outpatient (CLI) | payer OTHER, MEDICAID | END | disposition home or self-care (01) | LOC: CT 10:51 | PROVIDERS: ATTEND Family Medicine | DX: Z12.2 Encounter for screening for malignant neoplasm of respiratory organs (principal); F17.210 Nicotine dependence, cigarettes, uncomplicated; R91.8 Other nonspecific abnormal finding of lung field ==

== ENCOUNTER → 2024-10-06 | Outpatient (CLI) | payer OTHER, MEDICAID | END | disposition home or self-care (01) | LOC: MAMMO 11:22 | PROVIDERS: ATTEND Obstetrics & Gynecology | DX: Z12.31 Encounter for screening mammogram for malignant neoplasm of breast (principal); R92.343 Mammographic extreme density, bilateral breasts ==

== ENCOUNTER → 2025-01-21 | Outpatient (CLI) | payer OTHER, MEDICAID | END | disposition home or self-care (01) | LOC: US 00:26 | PROVIDERS: ATTEND Nurse Practitioner Family | DX: K76.0 Fatty (change of) liver, not elsewhere classified (principal); R10.13 Epigastric pain; I70.0 Atherosclerosis of aorta; K58.9 Irritable bowel syndrome, unspecified ==